=== PATIENT | female | born 1985 | race American Indian/Alaskan Native ===

== ENCOUNTER 2018-01-02 12:52 | Emergency (ER) | payer BC, MEDICAID ==
[2018-01-02] MEDS ORDERED: NACL 0.9% 1000 ML 1,000 ML IV ONE (15:37)
[2018-01-02] MEDS ORDERED: REGLAN IV ONE (15:38)
[2018-01-02] MEDS ORDERED: TYLENOL PO ONE (15:39)
--- NOTE | 2018-01-02 15:41 | Emergency Department Report ---
Chief Complaint: Upper Respiratory Infection Stated Complaint: HEADACHE/NAUSEA/VOMITING Time Seen by Provider: 01/02/18 15:37 - HPI History of Present Illness: 32-year-old female presents to the emergency department with complaint of nausea , vomiting and a generalized headache since last night. The nausea has improved but is still present. However the headache seems to have worsened despite taking some Goody powder. No history of migraines or recurrent headaches. She denies any vision change, slurred speech or any neurological deficits. - ROS Review of Systems: Positive for headache, nausea, vomiting Negative for chest pain, shortness of breath, fever - Exam Vital Signs: Vital Signs 01/02/18 12:56 Temperature 98.2 F Pulse Rate 78 Blood Pressure 131/81 O2 Sat by Pulse 98 Oximetry Physical Exam: Pupils equal and reactive to light bilaterally. No nystagmus. Cranial nerves intact. Heart and lungs normal auscultation. MSE screening note: Focused history and physical exam performed. Due to findings the following was ordered: ED Disposition for MSE Condition: Stable Referrals: PRIMARY CARE, [Primary Care Provider] - 3-5 Days
[2018-01-02] MEDS ORDERED: TYLENOL ONE (16:21)
[2018-01-02] MEDS ORDERED: REGLAN ONE (16:21)
[2018-01-02] MEDS ORDERED: NACL 0.9% 1000 ML 1,000 ML ONE (16:21)
[2018-01-02 20:24] VITALS: BP 134/71
[2018-01-02 20:31] LABS: Bilirubin,Urine NEG (Negative); Blood,Urine NEG (Negative); Color,Urine Yellow (Yellow); HCG Qualitative,Urine Negative (Negative); Mucus,Urine FEW /HPF; Protein,Urine <15 mg/dL mg/dL (Negative); Urobilinogen,Urine < 2.0 mg/dL (<2.0)
== END 2018-01-02 20:27 | disposition home or self-care (01) ==
LOC: ED 12:52
DX: R51 Headache (principal); R11.2 Nausea with vomiting, unspecified
CPT/HCPCS: 81001; 81025; 87086; 96361; 96374; 99283; J2765; J7030